=== PATIENT | female | born 1995 | race African-American/Black ===

== ENCOUNTER 2017-02-07 02:38 | Outpatient (CLI) | payer OTHER ==
[~2017-02-07 02:38] MED LIST: AMOXICILLIN500 MG PO; ENDOCET 5-3251 EACH PO; KEFLEX500 MG PO; MOTRIN800 MG PO; NAPROSYN500 MG PO; NOHOMEMEDS; PYRIDIUM100 MG PO
[2017-02-07 02:56] VITALS: BP 131/70
[2017-02-07 03:42] LABS: MCH 30.3 PG (29.0-34.0); MCHC 33.3 G/DL (30.0-36.0); MCV 90.9 FL (83-99); MEAN PLAT.VOLUME 8.8 uM^3 (9.5-12.4); PLATELET COUNT 245 K/uL (156-360); RBC DIS.WIDTH-CV 12.4 % (11.8-14.6); RBC DIS.WIDTH-SD 41.2 % (39-53); RED BLOOD COUNT 3.63 M/uL (3.80-5.20); WHITE BLOOD COUNT 10.3 K/uL (4.1-10.2)
[2017-02-07 06:10] VITALS: BP 105/53
[2017-02-07] MEDS ORDERED: PRENATAL TABLE1 EAC3 PO (06:16)
[2017-02-07 09:15] VITALS: BP 114/60
[2017-02-07 10:44] VITALS: BP 118/57
[2017-02-07] MEDS ORDERED: FLEXERIL10 MG PO (11:19)
== END 2017-02-07 11:40 | disposition home or self-care (01) ==
LOC: LDRP-OP 02:38 → 2WEST 02:39 → LDRP-OP 04-27 14:38
PROVIDERS: Obstetrics & Gynecology
DX: O9A.213 Injury, poisoning and certain other consequences of external causes complicating pregnancy, third trimester (principal); O99.333 Smoking (tobacco) complicating pregnancy, third trimester; F17.210 Nicotine dependence, cigarettes, uncomplicated; Z3A.33 33 weeks gestation of pregnancy; W10.9XXA Fall (on) (from) unspecified stairs and steps, initial encounter
CPT/HCPCS: 59025; 76805; 85027; 85384; G0378

== ENCOUNTER 2017-03-20 05:38 | Inpatient (IN) | payer OTHER ==
[~2017-03-20] VITALS: Ht 167.6 cm; Wt 103.6 kg
[2017-03-20] VITALS (9 sets, daily range): BP systolic 96–122; BP diastolic 51–66
[~2017-03-20 05:38] MED LIST changes: +FLEXERIL10 MG PO; +PRENATAL TABLE1 EAC3 PO
[2017-03-20] MEDS ORDERED: PERCOCET 5/31 TABLET PO (08:48)
[2017-03-20] MEDS ORDERED: MOTRIN800 MG PO (08:48)
[2017-03-21 02:54] VITALS: BP 98/56
[2017-03-21 07:07] VITALS: BP 101/57
[2017-03-21 07:28] LABS: EOSINOPHIL (%) 0.5 % (0-5); EOSINOPHIL COUNT 0.1 K/uL (0-0.3); HEMATOCRIT 28.7 % (36.0-46.0); IMMATURE GRANULOCYTE COUNT 0.1 K/uL; INSTRUMENT ABS NEUTROPHIL CT 7.4 K/uL; LYMPHOCYTE COUNT 1.9 K/uL (1.0-2.8); MCH 29.7 PG (29.0-34.0); MCHC 32.1 G/DL (30.0-36.0); MCV 92.6 FL (83-99); MEAN PLAT.VOLUME 9.1 uM^3 (9.5-12.4); MONOCYTE (%) 7.6 % (3-12); MONOCYTE COUNT 0.8 K/uL (0-0.8); NEUTROPHIL (%) 72.3 % (45-76); NEUTROPHIL COUNT 7.4 K/uL (1.8-6.4); PLATELET COUNT 249 K/uL (156-360); RBC DIS.WIDTH-CV 12.9 % (11.8-14.6); RBC DIS.WIDTH-SD 43.5 % (39-53); WHITE BLOOD COUNT 10.2 K/uL (4.1-10.2)
[2017-03-21 11:17] VITALS: BP 97/59
[2017-03-21 14:37] VITALS: BP 105/53
[2017-03-21 19:15] VITALS: BP 112/55
[2017-03-21 23:27] VITALS: BP 119/57
[2017-03-22 03:10] VITALS: BP 124/57
== END 2017-03-22 16:11 | disposition home or self-care (01) | DRG 765 ==
LOC: 2WEST 05:38 → 2SOUTH 09:00 → 2WEST 03-22 16:11
PROVIDERS: Obstetrics & Gynecology
DX: O34.219 Maternal care for unspecified type scar from previous cesarean delivery (principal); O34.211 Maternal care for low transverse scar from previous cesarean delivery; O99.214 Obesity complicating childbirth; E66.9 Obesity, unspecified; O99.824 Streptococcus B carrier state complicating childbirth; O77.0 Labor and delivery complicated by meconium in amniotic fluid; O99.02 Anemia complicating childbirth; D62 Acute posthemorrhagic anemia; Z3A.39 39 weeks gestation of pregnancy; Z68.30 Body mass index [BMI] 30.0-30.9, adult; Z37.0 Single live birth; Z30.2 Encounter for sterilization
CPT/HCPCS: 36415; 85025; 85027; 86850; 86900; 86901; 88302; J0690; J1100; J1200; J2270; J2274; J2405; J2765; J7120